=== PATIENT | female | born 1985 | race Caucasian/White ===

== ENCOUNTER 2024-07-31 17:23 | Day surgery (SDC) | payer BC, SELFPAY ==
[2024-07-31 13:16] VITALS: BP 133/83
[2024-07-31 13:32] VITALS: BMI 34.6
--- NOTE | 2024-07-31 13:42 | ED.GENMED ---
History of Present Illness
General
Chief Complaint: Flank Pain
Time Seen by Provider: 07/31/24 13:33
History of Present Illness
History of Present Illness:
Patient is a 38-year-old woman presenting to the emergency department with flank pain. Patient states that this morning she woke up with left-sided groin pain that went to her flank. She is also been having urinary frequency urgency. No
hematuria. No history of kidney stones. No fevers chills. No nausea vomiting. She has been having some vague left lower quadrant abdominal pain. She also notes that she does not have any chest pain that is midsternal. The pain does worsen with
a deep breath. Some occasional shortness of breath. No long car rides or plane rides, no hormone use, no history of blood clots. No malignancy. No hemoptysis.
Past History
Past History
ED Past Medical History: Arrthythmia (SVT), Psychiatric ( Anxiety, Depression) and Other (Ulcers, ADHD, )
ED Past Surgical History: Appendectomy, Cholecystectomy, (X 3), Gynecological (Ovarian cyst) and Other (Carpal tunnel, Cyst removed form stomach, Sinus surgery)
Social History
Tobacco: Non-smoker
Alcohol: Occasional
Personal:
Living: with family
Phy Exam
Physical Exam
Physical Exam:
GENERAL: in no acute distress
HEENT: normocephalic, extraocular movements intact, moist oral mucosa
NECK: normal inspection
RESPIRATORY: no respiratory distress, clear to auscultation bilaterally
CARDIOVASCULAR: regular rate and rhythm, reproducible midsternal chest wall tenderness to palpation
ABDOMEN/: soft, non-distended, left lower quadrant tenderness to palpation no rebound or guarding
EXTREMITIES: non-tender, no edema/swelling
NEUROLOGIC: awake and alert, moves all extremities
SKIN: warm
Course
Orders/Labs/Results
Orders:
Orders
07/31/24 13:11
Electrocardiogram (*1) Urgent
Reason for Study: Shortness of Breath
EKG- Treatment ONCE
07/31/24 13:41
CT Abd/pelvis W Iv Cont Urgent
Comment:
Reason For Exam: llq pain, l flank pain
Urinalysis Reflex To Culture Urgent
Date Specimen was Collected: 07/31/24
Time Specimen was Collected: 13:58
Ketorolac [Toradol] 15 mg IV NOW STA
Test Result ONCE
CR Chest - 2 Views Urgent
Comment:
Reason For Exam: sob
07/31/24 13:52
Complete Blood Count/With Diff Urgent
07/31/24 13:55
Ondansetron Injectable [Zofran] 4 mg .ROUTE .STK-MED ONE
07/31/24 13:56
Ondansetron Injectable [Zofran] 4 mg IV NOW STA
07/31/24 14:24
Basic Metabolic Panel Urgent
HCG, Serum Qualitative Screen Urgent
07/31/24 15:37
HYDROmorphone [Dilaudid] 0.5 mg IV NOW STA
Abnormal Lab Results
07/31/24 07/31/24
13:52 14:24
RBC 3.85 L 10^6/uL
(4.20-5.40)
Hgb 9.9 L g/dL
(12.0-16.0)
Hct 31.1 L %
(37.0-47.0)
MCV 80.8 L fL
(81.0-99.0)
MCH 25.7 L pg
(27.0-31.0)
MCHC 31.8 L g/dL
(33.0-37.0)
RDW 18.4 H %
(11.5-14.5)
MPV 10.5 H fL
(7.4-10.4)
Glucose 107 H mg/dl
(70-99)
07/31/24 13:52
07/31/24 14:24
Vital Signs
Initial and Last Documented VS:
Initial Vital Signs
Temp Pulse Resp BP Pulse Ox
98.6 F 69 20 133/83 98
07/31/24 13:16 07/31/24 13:16 07/31/24 13:16 07/31/24 13:16 07/31/24 13:16
Last Documented Vital Signs
Temp Pulse Resp BP Pulse Ox
98.6 F 69 20 133/83 98
07/31/24 13:16 07/31/24 13:16 07/31/24 13:16 07/31/24 13:16 07/31/24 13:16
MDM/Problems Addressed
Differential Diagnosis Includes:
Patient is a 38-year-old woman presenting to the emergency department with flank pain groin pain chest pain. Vitals are unremarkable and exam does show reproducible chest wall tenderness as well as left lower quadrant tenderness. Concern for
kidney stone versus urine infection. Could be diverticuliti. Chest pain is likely costochondritis. Per chart review it appears the patient has been diagnosed with this before. No shortness of breath certainly could be secondary to the
inflammation. Considered PE however patient is PERC negative and history and exam makes it less likely. Will check blood work EKG and CT scan. Will check urinalysis. Will give Toradol.
*Critical Care Note
Total Time (30-74mins, 75-104mins- exclusive of procedures): Not Applicable
Update Note
Update Note:
Blood work is unremarkable. CT scan per my interpretation with left-sided hydroureteronephrosis. Per the official read there is a 5 mm obstructing stone in the left UVJ. Otherwise there is some bilateral intrarenal stone and mild colitis as well
as small bilateral pleural effusion and small peritoneal fluid in the pelvis. Patient's pain was not controlled with Toradol. Will give Dilaudid. We are pending urine at this time. We did discuss at length about outpatient versus inpatient
management. However given patient's ongoing pain we will admit. Discussed with hospitalist who accepted patient to their service.
ED Attending Note
-
Portions of this chart may have been created with voice recognition software.� Occasional wrong word or��sound alike� substitutions may have occurred due to the inherent limitations of voice recognition software.
Discharge Plan
Departure
Patient Disposition: Admit
Date of Disposition: 07/31/24
Time of Disposition: 15:37
Presentation/result/management discussed w/ accepting MD/DO: Hospitalist
Discharge Problem:
Hydronephrosis with obstructing calculus
Prescriptions:
No Action
sertraline [Zoloft] 100 mg Tablet
200 mg PO HS
trazodone 100 mg Tablet
100 mg PO HS
vit-iron fum-folic ac [ Tablet] 28 mg iron- 800 mcg Tablet
1 tab PO DAILY
dextroamphetamine-amphetamine [Adderall] 20 mg Tablet
20 mg PO DAILY
quetiapine [Seroquel XR] 200 mg Tablet Extended Release 24 Hr
200 mg PO HS
nwdmqyyfno-lehhhrvpsasya-znrx [Fioricet] 50-300-40 mg Capsule
1 cap PO DAILY
dextroamphetamine-amphetamine [Adderall XR] 25 mg Capsule,Extended Release 24hr
25 mg PO DAILY
acetaminophen 325 mg Tablet
650 mg PO Q4HPRN PRN (Reason: mild pain) Qty: 0 0RF
oxycodone-acetaminophen 5-325 mg Tablet
1 tab PO Q4HPRN PRN (Reason: moderate pain) Qty: 0 0RF
ibuprofen 600 mg Tablet
600 mg PO Q6HPRN PRN (Reason: cramps) Qty: 0 0RF
naproxen 500 mg tablet
500 mg PO BID Qty: 20 0RF
Rx Instructions:
Please take with food
Referrals:
Parminder Bahena DO [Family Provider] -
Interventions
Interventions:
*Risk Screen - Suicide Last Done: 07/31/24 13:16
*General Assessment Last Done: 07/31/24 13:16
*Neglect/Abuse Screening Last Done: 07/31/24 13:16
*ED- Fall Risk Assessment Last Done: 07/31/24 13:32
*ED COVID-19 Vaccine History Last Done: 07/31/24 13:32
PS-Imcddg-Tubompfcqr Assessment Last Done: 07/31/24 13:32
ED-Female Genitourinary Assessment Last Done: 07/31/24 13:32
Discharge Date and Time
Print Language: [place]CI[place]
[2024-07-31] MEDS: TORADOL 15 MG IV (13:54)
[2024-07-31] MEDS: ZOFRAN 4 MG IV ×2 (13:56→20:10)
[2024-07-31 14:04] LABS: % Basophils 1.1 % (0-2); % Eosinophils 1.3 % (0-6); % Immature Granulocytes 0.4 % (0-0.5); % Neutrophils 69.2 % (42.2-75.2); Absolute Basophils 0.1 10^3/uL (0-0.2); Absolute Eosinophils 0.1 10^3/uL (0-0.7); Absolute Lymphocytes 1.2 10^3/uL (1.2-3.4); Absolute Monocytes 0.3 10^3/uL (0.1-0.6); Absolute Neutrophils 3.8 10^3/uL (1.4-6.5); Hematocrit 31.1 % (37.0-47.0); Hemoglobin 9.9 g/dL (12.0-16.0); Mean Corp Hgb Conc. 31.8 g/dL (33.0-37.0); Mean Corpuscular Hgb 25.7 pg (27.0-31.0); Mean Corpuscular Volume 80.8 fL (81.0-99.0); Mean Platelet Volume 10.5 fL (7.4-10.4); Nucleated Red Blood Cells % 0 %; Platelet Count 295 10^3/uL (130-400); Red Blood Cell Count 3.85 10^6/uL (4.20-5.40); Red Cell Dist. Width 18.4 % (11.5-14.5); White Blood Cell Count 5.5 10^3/uL (4.8-10.8)
[2024-07-31 14:42] LABS: HCG, Serum Qualitative Screen Negative
[2024-07-31 14:44] LABS: Blood Urea Nitrogen 11 mg/dl (7-17); Calcium 9.7 mg/dl (8.4-10.2); Carbon Dioxide 29 mmol/L (22-30); Chloride 106 mmol/L (98-107); Estimated Creatinine Clearance > 125 ml/min; Glucose 107 mg/dl (70-99); Potassium 4.3 mmol/L (3.5-5.1); Sodium 139 mmol/L (135-145); eGFR > 60.00
[2024-07-31] MEDS: DILAUDID 0.5 MG IV (15:48)
[2024-07-31 16:06] LABS: Urine Albumin Negative (Neg - Trace); Urine Bilirubin Negative (Negative); Urine Character Clear (Clear); Urine Color Yellow; Urine Glucose Negative (Negative); Urine Ketone Negative (Negative); Urine Leukocyte Negative (Negative); Urine Nitrite Negative (Negative); Urine Occult Blood 2+ (Negative); Urine Specific Gravity 1.015 (<1.030); Urine Urobilinogen Negative (Neg - 1+)
[2024-07-31 16:31] LABS: Urine Bacteria Few (Negative); Urine Red Blood Cell 16-20 /HPF (0-2); Urine White Cell 0-2 /HPF (0-5)
--- NOTE | 2024-07-31 17:18 | HPS.HSE ---
Family Physician
-
Family Physician: Parminder Bahena
Chief Complaint
-
left flank pain
History of Present Illness
38-year-old female past medical history of SVT, anxiety/depression, ulcers, ADHD, former opiate use, presenting with left flank pain. She woke up this morning with left-sided groin pain that went to her flank. She has been having urinary frequency
and urgency. Denies any blood in the urine. Denies history of kidney stones. Denies fevers or chills. Has nausea without vomiting. She also has midsternal chest pain worse with deep breathing starting yesterday. He has occasional shortness of
breath. She occasionally has chest pain like this.
Medical History
Past Medical History
Past Medical History: Reports Other (SVT, anxiety/depression, ulcers, ADHD, former opiate use)
Past Surgical History: Reports None
Social History
Tobacco: Non-smoker
Alcohol: None
Drug: None
Family History
Family History: Not pertinent
Allergies / Home Medications
Allergies reflects when Allergies were last updated in [facility].
Home Medications with original date entered in [facility]
Allergy/Medication List:
Allergies
Allergy/AdvReac Type Severity Reaction Status Date / Time
No Known Allergies Allergy Verified 07/31/24 13:17
Home Medications
sertraline 100 mg tablet (Zoloft) 200 mg PO HS Mental Health/Anxiety 03/11/22
trazodone 100 mg tablet 100 mg PO HS Sleep 03/11/22
dextroamphetamine-amphetamine ER 25 mg 24hr capsule,extend release (Adderall XR) 25 mg PO DAILY Neurological Condition 04/14/22
buprenorphine 8 mg-naloxone 2 mg sublingual film 1 film buccal QID 07/31/24
clonidine HCl 0.1 mg tablet 0.1 mg PO BID 07/31/24
dextroamphetamine-amphetamine 20 mg tablet 20 mg PO DAILY@1300 07/31/24
hydroxyzine HCl 50 mg tablet 50 mg PO HS 07/31/24
ibuprofen 400 mg tablet 400 mg PO Q6HPRN PRN mild pain 07/31/24
quetiapine 400 mg tablet (Seroquel) 400 mg PO HS 07/31/24
Review of Systems
-
History Source: Patient
A 12 point ROS was completed and negative except as noted: Yes
Constitutional: Reports No Symptoms
EENT: Reports No Symptoms
Respiratory: Reports No Symptoms
Cardiac: Reports No Symptoms
Abdomen/GI: Reports See HPI
: Reports No Symptoms
Musculoskeletal: Reports No Symptoms
Skin: Reports No Symptoms
Neurological: Reports No Symptoms
Endocrine: Reports No Symptoms
Hematologic/Lymphatic: Reports No Symptoms
Psych: Reports No Symptoms
Physical Exam
Vital Signs
Vital Signs
Temp Pulse Resp BP Pulse Ox
98.6 F 66 16 133/83 98
07/31/24 13:16 07/31/24 15:30 07/31/24 15:30 07/31/24 13:16 07/31/24 15:30
Physical Exam
General: Well Developed, Well Nourished and No Apparent Distress
HEENT: NormoCephalic, Moist mucous membranes and Atraumatic
Respiratory: Clear
Cardiac: S1/S2 and Regular Rhythm; No Murmur or Rub
GI: Soft, Non Distended and Normal Bowel Sounds; No Organomegaly
Rectal: Deferred by Provider
Genito-urinary: Costovertebral angle tend (left)
Musculoskeletal: No Clubbing, No Cyanosis and No Edema
Skin: No Rash
Neuro: Nonfocal/grossly intact
Laboratory Results
-
07/31/24 13:52
07/31/24 14:24
Data Reviewed
-
Lab Data: Labs Reviewed by me
Old Records: Reviewed
Impression/Plan
-
IMPRESSION:
PLAN:
# 5 mm obstructing calculus to left ureterovesicular junction with moderate left acute hydronephrosis
-Urinalysis unremarkable
-N.p.o. past midnight
-IV fluids
-Strain urine
-Tamsulosin
-Continue ibuprofen, Dilaudid, Zofran
-Urology consulted
# Pleuritic chest pain likely musculoskeletal
-EKG shows normal sinus rhythm,
-Chest x-ray shows mild cardiomegaly
-Tender to palpation of the chest
-Doubt pulmonary embolus
History of SVT
Anxiety/depression
-Continue Seroquel, sertraline, trazodone
History of ulcer
ADHD
-Continue Adderall
History of former opiate use
-Hold Suboxone
Chronic anemia
-Hemoglobin stable
Full code
DVT prophylaxis�SCDs
N.p.o. past midnight
[2024-07-31 19:39] VITALS: BP 144/88; BMI 37.1
--- NOTE | 2024-07-31 20:00 | PTCARENOTE ---
rec'd pt from ED via stretcher. pt ambulated from stretcher to bed without assistance. VSS. pt AAOx3, call pacheco within reach, POC ongoing.
[2024-07-31] MEDS: NSS 1000 IV (20:04)
[2024-07-31] MEDS: FLOMAX 0.4 MG PO (20:09)
[2024-07-31] MEDS: CATAPRES 0.1 MG PO (20:09)
[2024-07-31] MEDS: MOTRIN 400 MG PO (20:10)
[2024-07-31] MEDS: DESYREL 100 MG PO (21:16)
[2024-07-31] MEDS: ATARAX 50 MG PO (21:16)
[2024-07-31] MEDS: ZOLOFT 200 MG PO (21:16)
[2024-07-31] MEDS: SEROQUEL 400 MG PO (21:17)
[2024-07-31] MEDS: DILAUDID 1 MG IV (23:07)
[2024-07-31 23:51] VITALS: BP 107/59
[2024-08-01] VITALS (11 sets, daily range): BP systolic 87–120; BP diastolic 55–74
[2024-08-01] MEDS: NSS 1000 IV (03:52)
[2024-08-01] MEDS: MOTRIN 400 MG PO ×2 (04:11→22:24)
[2024-08-01] MEDS: DILAUDID 1 MG IV ×3 (05:53→23:48)
[2024-08-01 06:48] LABS: % Basophils 0.7 % (0-2); % Eosinophils 0.5 % (0-6); % Immature Granulocytes 0.2 % (0-0.5); % Neutrophils 62.6 % (42.2-75.2); Absolute Lymphocytes 1.8 10^3/uL (1.2-3.4); Absolute Monocytes 0.4 10^3/uL (0.1-0.6); Absolute Neutrophils 3.7 10^3/uL (1.4-6.5); Hematocrit 29.6 % (37.0-47.0); Hemoglobin 9.3 g/dL (12.0-16.0); Mean Corp Hgb Conc. 31.4 g/dL (33.0-37.0); Mean Corpuscular Hgb 25.4 pg (27.0-31.0); Mean Corpuscular Volume 80.9 fL (81.0-99.0); Nucleated Red Blood Cells % 0 %; Platelet Count 287 10^3/uL (130-400); Red Blood Cell Count 3.66 10^6/uL (4.20-5.40); Red Cell Dist. Width 18.1 % (11.5-14.5)
[2024-08-01 07:12] LABS: ALT (SGPT) 18 U/L (0-35); AST (SGOT) 24 U/L (14-36); Alkaline Phosphatase 50 U/L (38-126); Blood Urea Nitrogen 11 mg/dl (7-17); Calcium 9.4 mg/dl (8.4-10.2); Carbon Dioxide 27 mmol/L (22-30); Chloride 108 mmol/L (98-107); Estimated Creatinine Clearance 118 ml/min; Glucose 87 mg/dl (70-99); Sodium 139 mmol/L (135-145); Total Bilirubin 0.4 mg/dl (0.2-1.3); Total Protein 5.6 g/dl (6.3-8.2); eGFR > 60.00
--- NOTE | 2024-08-01 07:40 | CONS.URO ---
Consultation
-
Date/Time Consultation Requested: 08/01/24
Date/Time Consultation Performed: 08/01/24 0720
Requesting Provider: Hospital Medicine
Performing Provider: Kishore
Reason for Consultation: intractable left renal colic, 5 mm left UVJ stone
Medical History
History of Present Illness
38F presents to ED w/ acute onset of left flank pain w/ radiation to left groin.
+ urinary frequency and urgency.
+ nausea w/o vomiting.
Denies hematuria or dysuria.
Denies fevers or chills.
Past Medical History
Past Medical History: Arrhythmia (SVY), Psychiatric (Depression, ADHD) and Other (h/o opiate abuse)
Past Surgical History: None
Social History
Tobacco: Non-smoker
Alcohol: None
Drug: None
Personal:
Living: With Family
Family History
Family History: Reviewed & Not Pertinent
Allergies/Home Medications
Allergies
Allergy/AdvReac Type Severity Reaction Status Date / Time
No Known Allergies Allergy Verified 07/31/24 13:17
Home Medications
�Medication �Instructions �Recorded �Confirmed �Type
sertraline 100 mg tablet (Zoloft) 200 mg PO HS Mental Health/Anxiety 03/11/22 07/31/24 History
trazodone 100 mg tablet 100 mg PO HS Sleep 03/11/22 07/31/24 History
dextroamphetamine-amphetamine ER 25 mg PO DAILY Neurological 04/14/22 07/31/24 History
25 mg 24hr capsule,extend release Condition
(Adderall XR)
buprenorphine 8 mg-naloxone 2 mg 1 film buccal QID 07/31/24 07/31/24 History
sublingual film
clonidine HCl 0.1 mg tablet 0.1 mg PO BID 07/31/24 07/31/24 History
dextroamphetamine-amphetamine 20 20 mg PO DAILY@1300 07/31/24 07/31/24 History
mg tablet
hydroxyzine HCl 50 mg tablet 50 mg PO HS 07/31/24 07/31/24 History
ibuprofen 400 mg tablet 400 mg PO Q6HPRN PRN mild pain 07/31/24 07/31/24 History
quetiapine 400 mg tablet (Seroquel) 400 mg PO HS 07/31/24 07/31/24 History
Review of Systems
-
History Source: Patient
A 12 point Review of Systems was completed except as noted: Yes
Physical Exam
Vital Signs
Vital Signs
Temp Pulse Resp BP Pulse Ox
98.1 F 63 17 107/59 93
07/31/24 23:51 07/31/24 23:51 07/31/24 23:51 07/31/24 23:51 07/31/24 23:51
Lab / Testing Results
Laboratory Results
08/01/24 06:24
08/01/24 06:24
Physical Exam
General: Well Developed and Well Nourished
HEENT: Normocephalic and Anicteric
Respiratory: Non Labored Respirations
Cardiac: Regular Rhythm
Breast: Deferred by me
GI: Soft, Non Tender and Non Distended
Rectal: Deferred by Provider
Genito-urinary: No Costovertebral Tend
Musculoskeletal: No Edema
Skin: Warm and Dry
Neuro: AO x 3, No Motor Deficits and Nonfocal/Grossly Intact
Hematologic/Lymphatic: No Lymphadenopathy
Psych: Calm and Intact Judgement
Assessment / Plan
-
Obstructing left UVJ stone
Intractable left renal colic
WBC WNL
Cr WNL
CTAP w/ IV contrast => 5 mm left UVJ stone w/ moderate left hydroureteronephrosis
Detailed discussion including SDM had w/ patient regarding ureteroscopy, laser lithotripsy, stone extraction, stent placement.
Reviewed potential risks and complications including but not limited to urosepsis, bleeding, ureteral/bladder injury, risk of ureteral stricture formation, urologic obstruction, and need for additional emergent procedures/surgeries.
- NPO
- To OR this afternoon for left URS/LL/stone extraction/stent placement
- Surgical consent signed @OR main desk
- Continue IV Ceftriaxone
D/w patient.
D/w Hospitalist.
[2024-08-01] MEDS: CATAPRES PO (08:45)
[2024-08-01] MEDS: FLOMAX 0.4 MG PO (08:45)
--- NOTE | 2024-08-01 09:57 | W.PN.HOSP.TC ---
Today's Communication/Plan
-
For cystoscopy with left ureteral stent placement today
Assessment / Plan
Assessment / Plan
HPI: 38-year-old female past medical history of SVT, anxiety/depression, ulcers, ADHD, former opiate use, presenting with left flank pain. She woke up this morning with left-sided groin pain that went to her flank. She has been having urinary
frequency and urgency. Denies any blood in the urine. Denies history of kidney stones. Denies fevers or chills. Has nausea without vomiting. She also has midsternal chest pain worse with deep breathing starting yesterday. He has occasional
shortness of breath. She occasionally has chest pain like this.
#5 mm obstructing calculus to left ureterovesicular junction with moderate left acute hydronephrosis
Urinalysis unremarkable
Appreciate urology input, for cystoscopy with left ureteral stent placement today
Continue n.p.o., strain urine, continue Flomax
#Right upper extremity edema
Hold IV fluids, check ultrasound
# Pleuritic chest pain likely musculoskeletal
-EKG shows normal sinus rhythm, Chest x-ray shows mild cardiomegaly
-Tender to palpation of the chest. Doubt pulmonary embolus
-She is not tachycardic, she is not hypoxic
-Recommend follow-up with cardiology in the office for cardiomegaly
History of SVT
Anxiety/depression
-Continue Seroquel, sertraline, trazodone
History of ulcer
ADHD
-Hold Adderall
History of former opiate use
-Hold Suboxone
-Hold clonidine due to soft blood pressure
Chronic anemia
-Hemoglobin stable
DVT prophylaxis�SCDs
Full code
Total time spent to see the patient on the floor, examine the patient, review data and lab results, discuss treatment plan with patient, nursing staff around 51 minutes.
Physical Exam
General: Obese, no acute distress
HEENT: Normocephalic, Atraumatic, EOMI, MMM
Respiratory: Severely diminished breath sounds at the bases
Cardiac: Normal S1/S2, Regular Rate and Rhythm
GI: Soft, Nontender, Nondistended, Normal Bowel Sounds
Extremities: No Clubbing, Cyanosis, or Edema
Neuro: Nonfocal/Grossly Intact
Anticipated Discharge: Within 24 hours
Subjective/Interval History
-
Date of Service: August 01, 2024
Patient reports her left flank pain is the same, 7 out of 10 in intensity. She has right arm swelling. Reports intermittent dyspnea with activity. No fever, no chest pain.
Objective Data
-
Labs:
Laboratory Results
08/01/24
06:24
WBC 6.0
Hgb 9.3 L
Hct 29.6 L
Plt Count 287
Sodium 139
Potassium 4.0
Chloride 108 H
Carbon Dioxide 27
BUN 11
Creatinine 0.8
Glucose 87
Calcium 9.4
Total Bilirubin 0.4
AST 24
ALT 18
Alkaline Phosphatase 50
Vital Signs:
Vital Signs
Temp Pulse Resp BP Pulse Ox
97.6 F 55 16 90/55 95
08/01/24 07:40 08/01/24 07:40 08/01/24 07:40 08/01/24 08:45 08/01/24 07:40
I&O
07/31/24 08/01/24 08/02/24
06:59 06:59 06:59
Intake Total 2280 / 2280
Output Total 1200 / 1200
Balance 1080 / 1080
--- NOTE | 2024-08-01 11:41 | PTCARENOTE ---
Patient with noted +1 edema to RUE this am. IVF were infusing via R hand IV. Lungs diminished. Dr. Blood made aware. IVF stopped. CXR and peripheral ultra sound ordered. IV in RUE removed.
[2024-08-01] MEDS: NSS IV (11:43)
--- NOTE | 2024-08-01 15:38 | CM ---
Patient seen bedside.
Patient for OR today, switched to PSR status.
Lives with spouse and kids in a 1st floor apartment.
Spouse will transport home.
Plan: home no needs anticipated.
--- NOTE | 2024-08-01 17:44 | W.SUR.PREOP ---
Pre-Operative Surgical Note
-
I have examined this patient prior to the performance of the scheduled procedure.
The patient's condition is unchanged from the time of the current History and
Physical and the patient is able to undergo the scheduled procedure.
[2024-08-01] MEDS: DILAUDID 0.25 MG IV (19:06)
[2024-08-01] MEDS: DETROL LA 4 MG PO (19:22)
[2024-08-01] MEDS: Pyridium 200 MG PO (19:23)
[2024-08-01] MEDS: LEVAQUIN 100 IV (19:25)
[2024-08-01] MEDS: ZOLOFT 200 MG PO (22:25)
[2024-08-01] MEDS: ATARAX 50 MG PO (22:25)
[2024-08-01] MEDS: DESYREL 100 MG PO (22:25)
[2024-08-01] MEDS: SEROQUEL 400 MG PO (22:26)
[2024-08-02 03:55] VITALS: BP 119/71
[2024-08-02 07:05] VITALS: BP 107/66
--- NOTE | 2024-08-02 09:20 | W.PN.HOSP.TC ---
Today's Communication/Plan
-
Cleared by urology for discharge today
Will discharge on oral antibiotics for possible pneumonia
Assessment / Plan
Assessment / Plan
HPI: 38-year-old female past medical history of SVT, anxiety/depression, ulcers, ADHD, former opiate use, presenting with left flank pain. She woke up this morning with left-sided groin pain that went to her flank. She has been having urinary
frequency and urgency. Denies any blood in the urine. Denies history of kidney stones. Denies fevers or chills. Has nausea without vomiting. She also has midsternal chest pain worse with deep breathing starting yesterday. He has occasional
shortness of breath. She occasionally has chest pain like this.
#5 mm obstructing calculus to left ureterovesicular junction with moderate left acute hydronephrosis
Urinalysis unremarkable
Appreciate urology input, s/p cystoscopy with left ureteral stent placement 08/01
Medically stable for discharge
Continue Flomax, follow-up urology in the office for stent removal
#Right upper extremity edema
Ultrasound negative
#Dyspnea with activity
#Pneumonia
08/01 repeat chest x-ray shows new probable mild left lower lobe pneumonia
Will discharge on cefdinir and doxycycline to complete a 5-day course
#Pleuritic chest pain
-EKG shows normal sinus rhythm, Chest x-ray shows mild cardiomegaly
-Tender to palpation of the chest. Doubt pulmonary embolus
-She is not tachycardic, she is not hypoxic
-Recommend follow-up with cardiology in the office for cardiomegaly
History of SVT
Anxiety/depression
-Continue Seroquel, sertraline, trazodone
History of ulcer
ADHD
-Adderall
History of former opiate use
-Hold Suboxone
-Recommend permanently stopping clonidine due to soft blood pressure
Chronic anemia
-Hemoglobin stable
DVT prophylaxis�SCDs
Full code
Physical Exam
General: Obese, no acute distress
HEENT: Normocephalic, Atraumatic, EOMI, MMM
Respiratory: Severely diminished breath sounds at the bases
Cardiac: Normal S1/S2, Regular Rate and Rhythm
GI: Soft, Nontender, Nondistended, Normal Bowel Sounds
Extremities: No Clubbing, Cyanosis, or Edema
Neuro: Nonfocal/Grossly Intact
Anticipated Discharge: Today
Subjective/Interval History
-
Date of Service: August 02, 2024
Patient reports her left flank pain is 5 out of 10 in intensity. Reports intermittent dyspnea with activity. No fever, no vomiting.
Objective Data
-
Vital Signs:
Vital Signs
Temp Pulse Resp BP Pulse Ox
98.1 F 60 16 107/66 94
08/02/24 07:05 08/02/24 07:05 08/02/24 07:05 08/02/24 07:05 08/02/24 07:05
I&O
08/01/24 08/02/24 08/03/24
06:59 06:59 06:59
Intake Total 2280 / 2280 540 / 540
Output Total 1200 / 1200 200 / 200
Balance 1080 / 1080 340 / 340
[2024-08-02] MEDS: DILAUDID 0.5 MG IV (09:40)
[2024-08-02] MEDS: OMNICEF 300 MG PO (09:40)
[2024-08-02] MEDS: VIBRAMYCIN 100 MG PO (09:40)
[2024-08-02] MEDS: FLOMAX 0.4 MG PO (09:40)
[2024-08-02] MEDS: ADDERALL 10 MG PO (12:50)
[2024-08-02] MEDS: ADDERALL 15 MG PO (12:50)
--- NOTE | 2024-08-02 13:13 | W.DCSUMMARY ---
Discharge Summary
Discharge Data
Date of Admission: 08/01/24
Date of Discharge: 08/02/24
-
Pending Results: No
Hospital Course
Discharge diagnosis:
5 mm obstructing calculus to left ureterovesicular junction with moderate left acute hydronephrosis
Probable pneumonia
Dyspnea with activity
Pleuritic chest pain
Cardiomegaly
Right upper extremity edema
History of supraventricular tachycardia
Anxiety/depression
History of opioid dependency on Suboxone
Obesity due to excess calories
Consults: Urology
Procedures:
08/01/2024 cystoscopy with left ureteral stent placement
CT abdomen and pelvis:
1. MODERATE ACUTE LEFT HYDROURETERONEPHROSIS secondary to a 5 mm obstructing calculus at the left ureterovesical junction.
2. Small bilateral nonobstructing intrarenal calculi.
3. Mild intra and extrahepatic biliary dilatation.
4. Previous cholecystectomy and appendectomy.
5. Mild wall thickening in the ascending and sigmoid colon suggesting a mild colitis.
6. Small hiatal hernia.
7. Small amount of peritoneal fluid in the pelvis.
8. Minimal bilateral pleural effusions.
Chest x-ray:
New probable mild left lower lobe pneumonia
Hospital course:
38-year-old female with a past medical history of SVT, opioid dependency on Suboxone, anxiety/depression, and ADHD was admitted for a 5 mm obstructing left ureteral calculus causing moderate acute left hydronephrosis. Patient was treated with
Flomax and IVFs. She was seen in conjunction with urology, and had cystoscopy with left ureteral stent placement on 08/01/2024. Urology recommends discharge on Flomax, and follow-up with urology in the office in 1-2 weeks for stent removal.
Patient incidentally had right upper extremity edema. Her IV fluids were stopped. Ultrasound was negative for superficial or deep vein thrombosis.
Patient complained of musculoskeletal chest pain and dyspnea with activity. Her first chest x-ray was unremarkable. Her repeat chest x-ray shows new probable mild left lower lobe pneumonia. She was not hypoxic, she was afebrile. She will be
discharged on cefdinir and doxycycline to complete a 5-day course.
Patient's chest x-ray does show cardiomegaly. She has a history of SVT. Recommend that she follow-up in the office with cardiology for further workup.
Patient is medically stable for discharge. She needs to follow-up with her primary care doctor in 1 week, and urology and cardiology in the office as directed.
Disposition: Home self-care
Discharge planning: Required 41 minutes
Discharge Plan
-
Patient Disposition: Home (Routine Discharge)
Discharge Diagnosis/Procedures: obstructing left UVJ stone s/p left ureteroscopy/stone extraction/stent placement, possible pneumonia, cardiomegaly/enlarged heart
Condition: Good
Diet: Regular
Activity: No restrictions
Driving Restrictions: As prior to admission
Bathing Restrictions: None
Activity Restrictions/Additional Instructions:
Your blood pressure in the hospital was low.
Recommend you stopping clonidine.
You have been prescribed antibiotics for possible pneumonia.
Follow-up with urology in the office in 1-2 weeks for stent removal.
Follow-up with cardiology in the office in 3-4 weeks for an enlarged heart.
Follow-up with your primary care doctor in 1 week.
Referrals:
Parminder Bahena DO [Family Provider] - in one week
Luis Novak MD [Active] - in one to two weeks
(Please call [facility] at [phone] to schedule a stent removal procedure in the office within 2 business days of discharge home.
This will be scheduled within 7-14 days of the date of your surgery (08/01/24) - 30 second procedure using a small flexible camera with local anesthetic (able to drive yourself to and from procedure).)
Ketty Pizano MD [Active] - in three to four weeks
Prescriptions:
New
doxycycline hyclate 100 mg Capsule
100 mg PO Q12 5 Days Qty: 10 0RF
tamsulosin 0.4 mg Capsule
0.4 mg PO DAILY Qty: 30 0RF
cefdinir 300 mg Capsule
300 mg PO Q12 5 Days Qty: 10 0RF
Continued
sertraline [Zoloft] 100 mg Tablet
200 mg PO HS
trazodone 100 mg Tablet
100 mg PO HS
dextroamphetamine-amphetamine [Adderall XR] 25 mg Capsule,Extended Release 24hr
25 mg PO DAILY
dextroamphetamine-amphetamine 20 mg tablet
20 mg PO DAILY@1300
hydroxyzine HCl 50 mg Tablet
50 mg PO HS
ibuprofen 400 mg Tablet
400 mg PO Q6HPRN PRN (Reason: mild pain)
quetiapine [Seroquel] 400 mg Tablet
400 mg PO HS
buprenorphine-naloxone 8-2 mg film
1 film buccal QID
Discontinued
clonidine HCl 0.1 mg Tablet
0.1 mg PO BID
Discharge Orders:
Discharge Patient (As Directed); Ordered 08/02/24
Ordered By: Shady Blood
Discharge Date and Time
Discharge Date/Time: 08/02/24 16:26
Print Language: ROMANSH
[2024-08-02] MEDS: AFLURIA (36 mos+) 2024-2025 FORMULA 0.5 ML IM (13:35)
[2024-08-02 15:10] VITALS: BP 127/72
[2024-08-05 10:05] LABS: Stone Analysis Mass 65 mg
== END 2024-08-02 16:26 | disposition home or self-care (01) ==
LOC: PACU 17:23
PROVIDERS: Hospitalist; ATTENDING PHYSICIAN Family Medicine; CONSULT PHYSICIAN Surgery; EMERGENCY PHYSICIAN Student in an Organized Health Care Education/Training Program; FAMILY PHYSICIAN Family Medicine
PROC: 0T778DZ Dilation of Left Ureter with Intraluminal Device, Via Natural or Artificial Opening Endoscopic (ICD-10-PCS; 2024-08-01)
PROC: 3E02340 Introduction of Influenza Vaccine into Muscle, Percutaneous Approach (ICD-10-PCS; 2024-08-02)
DX: N13.2 Hydronephrosis with renal and ureteral calculous obstruction (principal); R07.2 Precordial pain; F11.20 Opioid dependence, uncomplicated; F32.A Depression, unspecified; F41.9 Anxiety disorder, unspecified; F90.9 Attention-deficit hyperactivity disorder, unspecified type; D64.9 Anemia, unspecified; E66.09 Other obesity due to excess calories; Z68.37 Body mass index [BMI] 37.0-37.9, adult; I51.7 Cardiomegaly; K44.9 Diaphragmatic hernia without obstruction or gangrene; Z87.442 Personal history of urinary calculi; Z23 Encounter for immunization; R60.0 Localized edema
CPT/HCPCS: 52356; 71046; 74018; 74177; 76000; 80048; 80053; 81003; 81015; 82365; 84703; 85025; 90686; 93005; 93971; 96374; 96375; 99285; C1769; C2617; G0008; Q9967